=== PATIENT | female | born 1975 | race Asian ===

== ENCOUNTER 2016-07-05 07:53 | Emergency (ER) | payer MEDICAID, OTHER ==
[~2016-07-05] VITALS: Ht 160 cm; Wt 53.5 kg
[~2016-07-05 07:53] MED LIST: METH5TAB68 PO
[2016-07-05] MEDS ORDERED: ONDANSETRON HCL 4MG/2ML VIAL IV STA (09:22)
[2016-07-05] MEDS ORDERED: SODIUM CHLORIDE 0.9% 1,000 ML IV ONE (09:22)
[2016-07-05] MEDS ORDERED: FAMOTIDINE 20MG/2ML VIAL IV STA (09:22)
[2016-07-05 09:30] VITALS: BP 127/68
[2016-07-05 09:50] LABS: BASOPHILS % 0.5 % (0.0-2.0); EOSINOPHILS % 0.8 % (0.0-5.0); HEMATOCRIT. 29.8 % (36.0-48.0); HEMOGLOBIN. 9.7 g/dL (12.0-16.0); LYMPHOCYTES % 21.9 % (20.0-50.0); MEAN CORPUSCULAR HEMOGLOBIN 28.4 pg (28.0-32.0); MEAN CORPUSCULAR HGB CONC 32.7 g/dL (31.0-37.0); MEAN CORPUSCULAR VOLUME 86.8 fL (81.0-99.0); MONOCYTES % 3.8 % (2.0-8.0); PLATELET 247 x1000/uL (130-400); RED BLOOD CELL COUNT 3.43 mill/uL (4.2-5.4); RED CELL DISTRIBUTION WIDTH 15.8 % (11.6-14.6); WHITE BLOOD COUNT 4.2 x1000/uL (4.5-11.0)
[2016-07-05 09:54] LABS: CHLORIDE 112 mEq/L (98-107); INDEX HEMOLYSI 1 (1-3); INDEX ICTERIC 1 (1-4); INDEX LIPEMIC 1 (1-3)
[2016-07-05 09:57] LABS: PARTIAL THROMBOPLASTIN TIME 24.5 sec (24.0-34.0); PROTHROMBIN TIME 10.2 sec
[2016-07-05 10:02] LABS: ALANINE AMINOTRANSFERASE 14 IU/L (13-61); ALBUMIN 3.1 g/dL (3.4-5.0); ANION GAP 13; CALCIUM 8.9 mg/dL (8.5-10.1); CARBON DIOXIDE 25 mEq/L (21-32); ETHANOL BLOOD < 10 mg/dL; LIPASE 136 IU/L (73-393); UREA NITROGEN BLOOD 14 mg/dL (7-21); eGFR > 60 mL/min (>60)
[2016-07-05 10:05] LABS: HCG SCREEN NEGATIVE
[2016-07-05 10:53] LABS: CLARITY URINE CLEAR (CLEAR); COLOR URINE YELLOW (YELLOW); GLUCOSE URINE NEGATIVE (NEGATIVE); KETONES URINE NEGATIVE (NEGATIVE); LEUKOCYTE ESTERASE URINE NEGATIVE (NEGATIVE); NITRITE URINE NEGATIVE (NEGATIVE); OCCULT BLOOD URINE 2+ (NEGATIVE); PROTEIN URINE 3+ (NEGATIVE); SPECIFIC GRAVITY URINE 1.018 (1.005-1.030); UROBILINOGEN URINE 0.2 E.U./dL (0.2-1.0)
[2016-07-05 11:06] LABS: SQUAMOUS EPITHELIAL CELL URINE 2+ /lpf (RARE/1+)
[2016-07-05 11:10] LABS: WBC URINE 0-2 /hpf (0-2)
[2016-07-05 11:11] LABS: BACTERIA URINE TRACE
[2016-07-05 11:12] LABS: MUCUS URINE 1+ /lpf (< = 2+)
[2016-07-05 11:31] LABS: *AMPHETAMINES SCREEN URINE NEGATIVE (NEGATIVE); *BARBITURATES SCREEN URINE NEGATIVE (NEGATIVE); *BENZODIAZEPINES SCREEN URINE NEGATIVE (NEGATIVE); *COCAINE SCREEN URINE NEGATIVE (NEGATIVE); ECSTASY MDMA SCREEN URINE NEGATIVE (NEGATIVE); METHADONE URINE SCREEN NEGATIVE (NEGATIVE); OPIATES URINE SCREEN NEGATIVE (NEGATIVE); PHENCYCLIDINE URINE SCREEN NEGATIVE (NEGATIVE)
[2016-07-05] MEDS ORDERED: METOCLOPRAMIDE HCL 10MG/2ML VIAL IV ONE (11:45)
[2016-07-05 12:03] LABS: CANNABINOID URINE SCREEN PRESUMTIVE POSITIVE (NEGATIVE)
== END 2016-07-05 13:33 | disposition home or self-care (01) ==
LOC: ER 08:44
DX: F12.188 Cannabis abuse with other cannabis-induced disorder (principal); R10.84 Generalized abdominal pain; R00.1 Bradycardia, unspecified; K29.70 Gastritis, unspecified, without bleeding; E05.90 Thyrotoxicosis, unspecified without thyrotoxic crisis or storm; Z88.0 Allergy status to penicillin; Z87.19 Personal history of other diseases of the digestive system; Z88.1 Allergy status to other antibiotic agents; Z88.8 Allergy status to other drugs, medicaments and biological substances
CPT/HCPCS: 36415; 74000; 80053; 80305; 81001; 83690; 84703; 85025; 85610; 85730; 93005; 96361; 96374; 96375; 99285; G0482; J2405; J2765; J3490; J7030; Z7610